=== PATIENT | male | born 1930 | race Caucasian/White ===

== ENCOUNTER 2017-10-02 00:31 | Observation (INO) ==
[2017-10-02] MEDS ORDERED: Naloxone 0.4 MG/ML INJ IVP PRN (04:15)
[2017-10-02] MEDS ORDERED: Ondansetron 4 MG/2 ML VIAL IVP PRN (04:15)
[2017-10-02] MEDS ORDERED: Acetaminophen 325 MG TABLET PO PRN (04:15)
[2017-10-02] MEDS ORDERED: *HR* Dextrose 50 % in Water (Syg) 50 ML SYRINGE IVP PRN (04:18)
[2017-10-02] MEDS ORDERED: Dextrose Gel 15 GM/37.5 ML TUBE PO PRN ×2 (04:18)
[2017-10-02] MEDS ORDERED: D5% in Water 1,000 ML IVC PRN (04:18)
--- NOTE | 2017-10-02 04:53 | Internal Med History&Physical ---
Date of Encounter: 10/02/17 Time of Encounter: 04:00 Assessment and Plan (1) TIA (transient ischemic attack) Current visit: Yes Status: Acute Acute onset, brief episode of confusion. Now resolved. CT head in the emergency room showed no evidence of acute infarct or bleed. Complete stroke workup with bilateral carotid Doppler, MRI brain and transthoracic echocardiogram. Continue telemetry monitoring. continue ASA and statin; check HbA1C and lipid profile. Qualifiers: Transient cerebral ischemia type: unspecified Qualified Code(s): G45.9 - Transient cerebral ischemic attack, unspecified (2) Essential hypertension Current visit: Yes Status: Chronic BP well-controlled; resume home meds; (3) Diabetes mellitus Current visit: Yes Status: Chronic reports blood sugars are well-controlled usually; check HbA1C, start Accucheck blood glucose monitoring with sliding scale insulin as needed; diabetic diet; Qualifiers: Diabetes mellitus type: type 2 Diabetes mellitus complication status: with kidney complications Diabetes mellitus complication detail: with chronic kidney disease Diabetes mellitus halfway insulin use: without halfway use Chronic kidney disease stage: stage 3 (moderate) Qualified Code(s): E11.22 - Type 2 diabetes mellitus with diabetic chronic kidney disease; N18.3 - Chronic kidney disease, stage 3 (moderate); N18.3 - Chronic kidney disease, stage 3 (moderate) (4) CKD (chronic kidney disease) Current visit: Yes Status: Chronic serum creatinine at baseline; Qualifiers: Chronic kidney disease stage: stage 3 (moderate) Qualified Code(s): N18.3 - Chronic kidney disease, stage 3 (moderate) (5) CAD (coronary artery disease) Current visit: Yes Status: Chronic Qualifiers: Coronary Disease-Associated Artery/Lesion type: [place] artery [place] vs. transplanted heart: [place] heart Associated angina: without angina Qualified Code(s): I25.10 - Atherosclerotic heart disease of [place] coronary artery without angina pectoris Internal Medicine - H&P: HPI Chief complaint: Confusion Admitted From: Emergency Dept Plans for Post Hospital Care: Home History of present illness: Mr. Neville is a 87 year old male with history of hypertension, chronic kidney disease, coronary artery disease, presented to [place] emergency room with complaints of acute onset of confusion. Patient was in his usual state of health until this evening at around 6:30 PM, when he was last seen by his significant other. At around 10 PM, patient was watching television when he could not operate the remote control due to confusion. His symptoms resolved in the emergency room. He denied headache, blurred vision, focal weakness/ paresthesias. No slurred speech, facial droop or dysphagia. No previous history of stroke. Past Med Surg Social Fam HX - Past Medical History Medical history: cancer (History of prostate cancer), coronary artery disease, diabetes, hyperlipidemia, hypertension, renal disease Psychiatric history: no psych history - Past Surgical History Surgical History: angioplasty/stent, orthopedic, other (Right wrist fracture repairs), vascular surgery (Abdominal aortic aneurysm repair) - Social History Smoking Status: Former smoker Smokeless Tobacco Status: No Alcohol use: none Drug use: none Occupational status: retired Current living situation: Home, With Family Activity Level: Independent ambulation Recent Out of Country Travel Within the Last 8 Weeks: No Exposure or Possible Exposure to Illness During Travel: No - Family History Father Living Status: Cause of : Triple A rupture Hx Family Cardiac Disorders: Yes Internal Medicine - H&P: Meds Aspirin [Lo-Dose Aspirin EC] 81 mg PO DAILY 04/07/16 [History] Atorvastatin [Lipitor] 40 mg PO HS 04/07/16 [History] Finasteride [Proscar] 5 mg PO DAILY 04/07/16 [History] GlipiZIDE XL (24 HR) [Glucotrol XL] 5 mg PO 0800 04/07/16 [History] Metoprolol [Lopressor] 50 mg PO DAILY 04/07/16 [History] hydroCHLOROthiazide [Hydrochlorothiazide] 25 mg PO DAILY 04/07/16 [History] 3 Allergy/AdvReac Type Severity Reaction Status Date / Time Diclofenac AdvReac See Verified 10/01/17 22:36 Comments All Systems PM: A 10-system review of systems was performed and is negative for pertinent findings except as documented above in the HPI. - Constitutional Constitutional: no chills, no fever(s), no night sweats - EENT Eyes: no change in vision, no discharge, no pain, no photophobia Ears: no ear discharge, no ear pain, no tinnitus Nose, mouth and throat: no dysphagia, no nasal discharge, no neck pain, no sore throat - Cardiovascular Cardiovascular ROS IM: no chest pain, no diaphoresis, no dyspnea, no lightheadedness, no palpitations, no syncope - Respiratory Respiratory: no cough, no dyspnea, no wheezing, no excessive phlegm production - Gastrointestinal Gastrointestinal: no abdominal pain, no diarrhea, no hematemesis, no hematochezia, no melena, no nausea, no vomiting - Musculoskeletal Musculoskeletal ROS IM: no numbness, no tingling - Integumentary Integumentary IM: no rash, no unusual bruising - Neurological Neurological ROS: confusion - Hematologic/Lymphatic Hematologic/Lymphatic: no easy bruising - Constitutional Vitals: Temp Pulse Resp BP Pulse Ox 97.6 F 59 16 156/85 94 10/02/17 03:45 10/02/17 03:45 10/02/17 03:45 10/02/17 03:45 10/02/17 03:45 General appearance: Present: A&O X 3 (hearing loss), answers questions appropriately - Respiratory Respiratory exam: Present: CTAB. Absent: accessory muscle use, rales, rhonchi, wheezes - Cardiovascular Cardiovascular exam: Present: RRR, +S1, +S2. Absent: diastolic murmur, gallop, rubs, systolic murmur - GI/Abdominal GI/Abdominal exam: Present: normal bowel sounds, soft (obese), no peritoneal signs. Absent: distended, tenderness - Extremities Exam Extremities exam: Present: full ROM, warm, radial pulses palpable and symmetrical. Absent: calf tenderness, cyanotic, pedal edema - Neurological Exam Neurological exam: Present: CN II-XII intact, oriented X3, no focal deficits. Absent: pronater drift, facial droop, speech deficit - Skin Skin exam: Present: dry, intact Internal Med - H&P Results - EKG Data -: EKG Interpreted by Myself (first degree AV block) EKG shows normal: sinus rhythm Rate: normal
[2017-10-02 05:48] LABS: Chol/HDL Ratio 4.5 (0-4.9)
[2017-10-02 06:23] LABS: Hemoglobin A1C 5.6 %
[2017-10-02] MEDS: Insulin LISPRO 300 UNITS/3 ML VIAL SQ SCH ×2 (07:44→11:21)
[2017-10-02] MEDS ORDERED: Finasteride 5 MG TABLET PO SCH (09:00)
[2017-10-02] MEDS ORDERED: hydroCHLOROthiazide 25 MG TABLET PO SCH (09:00)
[2017-10-02] MEDS ORDERED: Aspirin Enteric Coated 81 MG Tablet PO SCH (09:00)
[2017-10-02] MEDS ORDERED: Perflutren Lipid Microsphere 1.3 ML in 0.9 % Sodium Chloride 8.7 ML IVP ONE (10:38)
[2017-10-02 15:22] VITALS: BP 135/68
--- NOTE | 2017-10-02 15:38 | Discharge Summary ---
Date of Encounter: 10/02/17 Time of Encounter: 15:34 - Discharge Diagnosis (1) TIA (transient ischemic attack) Priority: Primary Status: Acute Comments: possible. Presented with an episode of confusion; patient states he was unable to find the channel on his remote control for TV and did not feel herself for several hours. Head CT nonacute, brain MRI without acute infarct. Bilateral carotids with nonstenotic plaque bilaterally. TTE with EF 45%, dilated left atrium and aortic stenosis. Etiology unknown, possible TIA. No previous history of CVA. Patient returned to baseline without intervention. Declined inpatient neurology consult. Recommend follow-up with PCP within one week Qualifiers: Transient cerebral ischemia type: unspecified Qualified Code(s): G45.9 - Transient cerebral ischemic attack, unspecified (2) Essential hypertension Priority: Primary Status: Chronic Comments: per hx. BP mildly elevated on arrival otherwise well controlled. Continue home BP medications. (3) Diabetes mellitus Priority: Secondary Status: Chronic Comments: per hx. blood sugars controlled. Continue home diabetes medication regimen. Qualifiers: Diabetes mellitus type: type 2 Diabetes mellitus complication status: with kidney complications Diabetes mellitus complication detail: with chronic kidney disease Diabetes mellitus fdc insulin use: without fdc use Chronic kidney disease stage: stage 3 (moderate) Qualified Code(s): E11.22 - Type 2 diabetes mellitus with diabetic chronic kidney disease; N18.3 - Chronic kidney disease, stage 3 (moderate); N18.3 - Chronic kidney disease, stage 3 (moderate) (4) CKD (chronic kidney disease) Priority: Secondary Status: Chronic Comments: per hx. renal function at baseline. Can follow up with nephrology outpatient. Qualifiers: Chronic kidney disease stage: stage 3 (moderate) Qualified Code(s): N18.3 - Chronic kidney disease, stage 3 (moderate) (5) Aortic stenosis Priority: Primary Status: Acute Comments: 10/02/2017 TTE with evidence of moderate to severe aortic stenosis. Discussed with Dr. Alvarez and this can be worked-up/evaluated further outpatient. Qualifiers: Cardiac valve disease etiology: etiology unspecified Qualified Code(s): I35.0 - Nonrheumatic aortic (valve) stenosis - Discharge Medications Home Medications: Aspirin [Lo-Dose Aspirin EC] 81 mg PO DAILY 04/07/16 [History] Atorvastatin [Lipitor] 40 mg PO HS 04/07/16 [History] Finasteride [Proscar] 5 mg PO DAILY 04/07/16 [History] GlipiZIDE XL (24 HR) [Glucotrol XL] 5 mg PO DAILY 04/07/16 [History] hydroCHLOROthiazide [Hydrochlorothiazide] 25 mg PO DAILY 04/07/16 [History] FLUoxetine HCl [Fluoxetine HCl] 10 mg PO DAILY 10/02/17 [History] Fluticasone Propionate [Flovent Diskus] 250 mcg IH DAILY 10/02/17 [History] Losartan Potassium [Cozaar] 100 mg PO DAILY 10/02/17 [History] Metoprolol XL (24 HR) Succ [Toprol Xl] 50 mg PO DAILY 10/02/17 [History] Metoprolol [Lopressor] 50 mg PO DAILY tablet 10/02/17 [Rx] Allergies/Adverse Reactions: 3 Allergy/AdvReac Type Severity Reaction Status Date / Time Diclofenac AdvReac See Verified 10/01/17 22:36 Comments Procedures/tests Complete & Pending: Procedures Performed prior 72 hours Category Date Time Status MR head/brain wo con [MR] Routine MRI 10/02/17 04:16 Completed EV carotid duplex imaging BI Routine Y 10/02/17 04:16 Completed EV echocardiogram w enhance Routine Y 10/02/17 04:16 Completed Date of admission: 10/02/17 03:19 Primary care physician: Jesus Manuel Cristobal MD Discharging clinician: Svetlana Sherwood Anticipated date of discharge: 10/02/17 - Patient Status Disposition: Home, Self-Care Condition: Good Functional capacity at discharge: independent ambulation Overall status at discharge: patient is back to baseline - Discharge Instructions Instructions: Transient Ischemic Attack (DC), Aortic Stenosis (DC) Follow Up With: Jesus Manuel Cristobal MD [Primary Care Provider] - (Follow up appointment web requested. Office will contact you with appointment time.) Uriel Alvarez DO [Partnered Physician] - (Please establish care with cardiology for further workup and treatment of aortic stenosis. You can call Dr. Alvarez ([facility]) at number listed above or you may need to obtain referral from PCP) Aric Mendoza DO [Partnered Physician] - (Please establish care with Neurology if confusion or other symptoms of TIA reoccur.) - Diet and Activity Activity: increase activity as tolerated Diet: advance to your usual diet Hospital course: Mr. Neville is a 87 year old male - Time Spent with Patient Total time spent providing and/or coordinating discharge services: - Constitutional Vitals: Temp Pulse Resp BP Pulse Ox 97.7 F 61 17 135/68 92 10/02/17 15:21 10/02/17 15:21 10/02/17 15:21 10/02/17 15:21 10/02/17 15:21 General appearance: Present: A&O X 3 (hearing loss), answers questions appropriately
[2017-10-02] MEDS ORDERED: Insulin LISPRO 300 UNITS/3 ML VIAL SQ SCH (21:00)
== END 2017-10-02 17:45 | disposition home or self-care (01) ==
LOC: 3BNU
PROVIDERS: ADMIT Internal Medicine; ATTEND Internal Medicine

== ENCOUNTER 2018-03-15 02:13 | Inpatient (IN) ==
[2018-03-15] MEDS ORDERED: cefTRIAXone 1,000 MG in Water for inj. (sterile) 20 ML 10 ML IVP ONE (02:48)
[2018-03-15] MEDS ORDERED: Azithromycin 500 MG in D5% in Water 250 ML IVPB ONE (02:48)
[2018-03-15 04:31] LABS: Basophils % 0.3 %; Eosinophils # 0.2 K/mcL (0.0-0.6); Eosinophils % 2.5 %; Hematocrit 38.5 % (37.5-50.1); Hemoglobin 12.7 g/dL (12.9-16.9); Immature Granulocytes % 0.3 % (0-4); Lymphocytes # 1.4 K/mcL (0.6-4.6); Lymphocytes % 15.6 %; Mean Corpuscular Volume 87.9 fL (83.0-100.0); Mean Platelet Volume 11.4 fL (9.4-12.4); Monocytes # 0.7 K/mcL (0.0-1.3); Monocytes % 8.3 %; Neutrophils # 6.4 K/mcL (1.6-8.9); Platelet Count 133 K/mcL (140-400); Red Blood Count 4.38 M/mcL (4.19-5.50); Red Cell Distribution Width 14.8 % (11.5-14.5)
[2018-03-15 04:53] LABS: Alanine Aminotransferase 15 Units/L (7-52); Albumin 4.1 g/dL (3.5-5.7); Albumin/Globulin Ratio 1.5 (1.1-2.2); Alkaline Phosphatase 53 Units/L (34-104); Aspartate Amino Transferase 17 Units/L (13-39); BUN/Creatinine Ratio 18 (6-26); Bilirubin,Total 1.1 mg/dL (0.3-1.0); Blood Urea Nitrogen 22 mg/dL (8-23); Calcium 9.4 mg/dL (8.6-10.3); Carbon Dioxide 22 mEq/L (23-29); Chloride 111 mEq/L (98-107); Globulin 2.8 g/dL (2.4-3.5); Glucose 128 mg/dL (70-105); Osmolality,Calculated 295 (280-300); Potassium 3.9 mEq/L (3.5-5.1); Sodium 140 mEq/L (136-145); Total Protein 6.9 g/dL (6.4-8.9); eGFR For African Americans > 60 (> 60); eGFR For Non-African Americans 56 (> 60)
--- NOTE | 2018-03-15 04:58 | Emergency Department Note ---
Disposition Clinical Impression: Pneumonia Qualifiers: Pneumonia type: due to unspecified organism Laterality: unspecified laterality Lung location: unspecified part of lung Qualified Code(s): J18.9 - Pneumonia, unspecified organism Disposition: Admitted As Inpatient Condition: Undetermined General Adult HPI - General Chief complaint: ED Shortness of Breath/Dyspnea Stated complaint: sent from [facility] for PN Source: patient, family Nursing Notes Reviewed: Yes Vital Signs Reviewed: Yes - History of Present Illness HPI Narrative: This is a 87-year-old male who presents with concern for pneumonia. He was actually diagnosed yesterday with pneumonia and started on Levaquin as an outpatient. He ultimately went back to [facility] emergency department today with concerns for ongoing cough and congestion. He was subsequent found to have ongoing pneumonia and was recommended to be admitted to the hospital. He declined transfer here for admission but was willing to come in a private vehicle. He was not accepted as a direct admit as he was coming from a health care facility. General: No acute distress HEENT: Pupils equal and reactive to light, extraoccular muscle movement is normal, TMS are clear bilaterally. Heart: RRR, No murmor rub or gallop Lungs: lungs clear, no wheezing, rales or ronchi. ABD: SNT, no focal areas or tenderness, no guarding or rebound tenderness. Extremities: No cyanosis, clubbing or edema Neuro: CN 2-12 in tact, no focal deficit. strength 5/5. Medical decision making Findings consistent with pneumonia. We will start ceftriaxone and azithromycin , blood cultures will be sent. A CT scan of the chest will be obtained to evaluate the degree and extent of pneumonia. The patient is not having hypoxia or respiratory distress at this time. We will proceed with admission. Discussed case with hospitalist team. Pain Scale: 0 - Related Data Home Medications Medication Instructions Recorded Confirmed Aspirin [Lo-Dose Aspirin EC] 81 mg PO DAILY 04/07/16 03/15/18 Atorvastatin [Lipitor] 40 mg PO HS 04/07/16 03/15/18 Finasteride [Proscar] 5 mg PO DAILY 04/07/16 03/15/18 GlipiZIDE XL (24 HR) [Glucotrol XL] 5 mg PO DAILY 04/07/16 03/15/18 FLUoxetine HCl [Fluoxetine HCl] 10 mg PO DAILY 10/02/17 03/15/18 Fluticasone Propionate [Flovent 250 mcg IH DAILY 10/02/17 03/15/18 Diskus] Losartan Potassium [Cozaar] 100 mg PO DAILY 10/02/17 03/15/18 Previous Rx's Medication Instructions Recorded Metoprolol [Lopressor] 50 mg PO DAILY tablet 10/02/17 levoFLOXacin [Levaquin] 750 mg PO DAILY #9 tablet 03/14/18 Allergies Allergy/AdvReac Type Severity Reaction Status Date / Time Diclofenac AdvReac See Verified 03/14/18 06:44 Comments All systems ED: reviewed and negative except as stated. Review of Systems: As Per HPI Past Medical History - Past Medical History Medical history: Reports: cancer, COPD, coronary artery disease, diabetes, hyperlipidemia, hypertension, renal disease Surgical history: Reports: angioplasty/stent, orthopedic, other (Right wrist fracture repairs), vascular surgery (Abdominal aortic aneurysm repair) Psychiatric history: Reports: anxiety - Social History Smoking Status: Former smoker Smokeless Tobacco Status: No Alcohol use: Reports: none Drug use: Reports: none Physical Exam - General General appearance: alert, in no apparent distress Course Vital Signs Temperature 97.8 F 03/15/18 02:19 Pulse Rate 75 03/15/18 02:19 Respiratory Rate 28 03/15/18 02:19 Blood Pressure 150/88 03/15/18 02:19 O2 Sat by Pulse Oximetry 93 03/15/18 02:19 Temperature 97.8 F 03/15/18 02:31 Pulse Rate 75 03/15/18 02:31 Respiratory Rate 28 03/15/18 02:31 Blood Pressure 150/88 03/15/18 02:31 O2 Sat by Pulse Oximetry 93 03/15/18 02:31 Oxygen Delivery Oxygen Delivery Room Air Medical Decision Making - Lab Data Result diagrams: 03/15/18 04:16
[2018-03-15] MEDS ORDERED: Naloxone 0.4 MG/ML INJ IVP PRN (06:34)
[2018-03-15] MEDS ORDERED: Acetaminophen 325 MG TABLET PO PRN (06:34)
--- NOTE | 2018-03-15 06:43 | Internal Med History&Physical ---
Date of Encounter: 03/15/18 Time of Encounter: 05:00 Internal Medicine - H&P: HPI Chief complaint: Shortness of breath Admitted From: Home Plans for Post Hospital Care: Home History of present illness: Mr. Neville is a 87 year old male presented to ER for shortness of breath for 3-4 days. Past medical history is significant for COPD, diabetes, hypertension Patient said he starts shortness of breath since 3-4 days ago. With productive cough. Sputum is clear. Patient also has a low fever with temperature 99.7. Patient denies chest pain, nausea, vomiting. In the emergency room, chest x- ray shows possible pneumonia, patient was advised to be admitted but patient refused. He was prescribed by mouth Levaquin and discharged to home. Patient still have difficulty breathing at home and come back to hospital again. Patient was admitted for further management. Past Med Surg Social Fam HX - Past Medical History Medical history: cancer, COPD, coronary artery disease, diabetes, hyperlipidemia , hypertension, renal disease Additional medical history: prostate cancer (radiation seeds about 10 years ago) Psychiatric history: anxiety - Past Surgical History Surgical History: angioplasty/stent, orthopedic, other (Right wrist fracture repairs), vascular surgery (Abdominal aortic aneurysm repair) Additional surgical history: angioplasty, triple A - Social History Smoking Status: Former smoker Smokeless Tobacco Status: No Alcohol use: none Drug use: none - Family History Father Living Status: Hx Family Cardiac Disorders: Yes Internal Medicine - H&P: Meds Aspirin [Lo-Dose Aspirin EC] 81 mg PO DAILY 04/07/16 [History] Atorvastatin [Lipitor] 40 mg PO HS 04/07/16 [History] Finasteride [Proscar] 5 mg PO DAILY 04/07/16 [History] GlipiZIDE XL (24 HR) [Glucotrol XL] 5 mg PO DAILY 04/07/16 [History] FLUoxetine HCl [Fluoxetine HCl] 10 mg PO DAILY 10/02/17 [History] Fluticasone Propionate [Flovent Diskus] 250 mcg IH DAILY 10/02/17 [History] Losartan Potassium [Cozaar] 100 mg PO DAILY 10/02/17 [History] Metoprolol [Lopressor] 50 mg PO DAILY tablet 10/02/17 [Rx] levoFLOXacin [Levaquin] 750 mg PO DAILY #9 tablet 03/14/18 [Rx] 3 Allergy/AdvReac Type Severity Reaction Status Date / Time Diclofenac AdvReac See Verified 03/14/18 06:44 Comments All Systems PM: A 10-system review of systems was performed and is negative for pertinent findings except as documented above in the HPI. - Constitutional Vitals: Temp Pulse Resp BP Pulse Ox 97.9 F 69 17 138/68 97 03/15/18 05:08 03/15/18 05:08 03/15/18 05:08 03/15/18 05:08 03/15/18 05:08 General appearance: Present: A&O X 3, no acute distress, answers questions appropriately - Head Head exam: Present: atraumatic, normocephalic - Eye Eye exam: Present: PERRL, conjuntiva pink, sclera anicteric Pupils: Present: PERRL - Neck Neck exam general surgery: Present: supple, trachea midline. Absent: lymphadenopathy - Respiratory Respiratory exam: Present: CTAB. Absent: accessory muscle use, rales, rhonchi, wheezes - Cardiovascular Cardiovascular exam: Present: RRR, +S1, +S2. Absent: diastolic murmur, gallop, rubs, systolic murmur - GI/Abdominal GI/Abdominal exam: Present: normal bowel sounds, soft, no peritoneal signs. Absent: distended, tenderness - Extremities Exam Extremities exam: Present: pedal edema (Mild pedal edema bilaterally), warm, radial pulses palpable and symmetrical. Absent: calf tenderness, cyanotic - Neurological Exam Neurological exam: Present: CN II-XII intact, oriented X3, no focal deficits. Absent: pronater drift, facial droop, speech deficit - Skin Skin exam: Present: dry, intact Internal Med - H&P Results - Labs CBC & Chem 7: 03/15/18 04:16 03/15/18 04:16 - Assessment and plan (1) COPD (chronic obstructive pulmonary disease) Current Visit: Yes Status: Acute Assessment and plan: Patient has no wheezing. Continue home medications. DuoNeb when necessary. Qualifiers: COPD type: emphysema Emphysema type: unspecified Qualified Code(s): J43.9 - Emphysema, unspecified (2) DVT prophylaxis Current Visit: Yes Status: Acute Assessment and plan: Heparin subcutaneously (3) Community acquired pneumonia Current Visit: No Status: Acute Assessment and plan: Continue antibiotic azithromycin and Rocephin IV. Continue symptomatic treatment. Qualifiers: Laterality: left Lung location: lower lobe of lung Qualified Code(s): J18.1 - Lobar pneumonia, unspecified organism (4) CAD (coronary artery disease) Current Visit: No Status: Chronic Assessment and plan: Continue home medications. Qualifiers: Coronary Disease-Associated Artery/Lesion type: [place] artery [place] vs. transplanted heart: [place] heart Associated angina: without angina Qualified Code(s): I25.10 - Atherosclerotic heart disease of [place] coronary artery without angina pectoris (5) Diabetes mellitus Current Visit: No Status: Chronic Assessment and plan: [place] Patient with sliding scale insulin Qualifiers: Diabetes mellitus type: type 2 Diabetes mellitus long-term insulin use: without long term care phlebotomist use Diabetes mellitus complication status: with kidney complications Diabetes mellitus complication detail: with chronic kidney disease Chronic kidney disease stage: stage 3 (moderate) Qualified Code(s): E11.22 - Type 2 diabetes mellitus with diabetic chronic kidney disease; N18.3 - Chronic kidney disease, stage 3 (moderate); N18.3 - Chronic kidney disease, stage 3 (moderate) (6) CHF (congestive heart failure) Current Visit: Yes Status: Acute Assessment and plan: Patient presented with shortness of breath. He has elevated BNP. He has mild bilateral pedal edema. Need to rule out CHF. Will order echocardiogram. Start low-dose Lasix. Qualifiers: Heart failure type: unspecified Heart failure chronicity: acute Qualified Code(s): I50.9 - Heart failure, unspecified - Time Spent With Patient Total time spent is greater than 50% in coordination of care (as documented) at patient's floor/unit and/or counseling patient: 40 minutes Greater than 35 minutes
[2018-03-15] MEDS ORDERED: Ipratropium/Albuterol Neb 3 ML IH PRN (06:45)
[2018-03-15] MEDS ORDERED: *HR* Dextrose 50 % in Water (Syg) 50 ML SYRINGE IVP PRN (06:48)
[2018-03-15] MEDS ORDERED: Dextrose Gel 15 GM/37.5 ML TUBE PO PRN ×2 (06:48)
[2018-03-15] MEDS ORDERED: D5% in Water 1,000 ML IVC PRN (06:48)
[2018-03-15] MEDS: *HR* Heparin 5,000 UNIT/ML VIAL SQ SCH ×2 (06:52→16:23)
[2018-03-15] MEDS ORDERED: Furosemide 20 MG TABLET PO SCH (09:00)
[2018-03-15] MEDS: Aspirin Enteric Coated 81 MG Tablet PO SCH (10:38)
[2018-03-15] MEDS: Finasteride 5 MG TABLET PO SCH (10:39)
[2018-03-15] MEDS: Insulin LISPRO 300 UNITS/3 ML VIAL SQ SCH ×4 (10:41→20:25)
--- NOTE | 2018-03-15 12:42 | Event Note ---
Date of Encounter: 03/15/18 Time of Encounter: 08:40 Patient complains of shortness of breath especially while lying down. He does get swelling in his lower extremities occasionally. Shortness of breath worsens with any activity. Denies any wheezing at this time. No significant improvement with in symptoms with bronchodilators. No prior history of cardiac disease. CT of the chest shows emphysema and right apical lung nodule. BNP is elevated. Awaiting 2-D echocardiogram. Will treat empirically with a dose of Lasix and I will assess response.
[2018-03-15] MEDS ORDERED: Furosemide 20 MG/2 ML VIAL IVP SCH (12:45)
[2018-03-16 05:19] LABS: Basophils % 0.5 %; Eosinophils # 0.4 K/mcL (0.0-0.6); Eosinophils % 5.5 %; Hematocrit 38.8 % (37.5-50.1); Hemoglobin 12.8 g/dL (12.9-16.9); Immature Granulocytes % 0.4 % (0-4); Lymphocytes # 1.5 K/mcL (0.6-4.6); Lymphocytes % 20.6 %; Mean Corpuscular Hemoglobin 28.8 pg (28.0-33.3); Mean Corpuscular Volume 87.2 fL (83.0-100.0); Mean Platelet Volume 11.4 fL (9.4-12.4); Monocytes # 0.7 K/mcL (0.0-1.3); Monocytes % 9.9 %; Neutrophils # 4.7 K/mcL (1.6-8.9); Platelet Count 130 K/mcL (140-400); Red Blood Count 4.45 M/mcL (4.19-5.50); Red Cell Distribution Width 14.6 % (11.5-14.5); Segmented Neutrophils % 63.1 %
[2018-03-16 05:33] LABS: BUN/Creatinine Ratio 20 (6-26); Blood Urea Nitrogen 24 mg/dL (8-23); Calcium 9.2 mg/dL (8.6-10.3); Carbon Dioxide 22 mEq/L (23-29); Chloride 109 mEq/L (98-107); Glucose 119 mg/dL (70-105); Magnesium 2.2 mg/dL (1.6-2.6); Osmolality,Calculated 293 (280-300); Potassium 3.7 mEq/L (3.5-5.1); Sodium 139 mEq/L (136-145); eGFR For African Americans > 60 (> 60); eGFR For Non-African Americans 56 (> 60)
[2018-03-16] MEDS: Azithromycin 500 MG in D5% in Water 250 ML IVPB SCH (06:11)
[2018-03-16] MEDS: *HR* Heparin 5,000 UNIT/ML VIAL SQ SCH ×2 (06:13→17:55)
[2018-03-16] MEDS: Insulin LISPRO 300 UNITS/3 ML VIAL SQ SCH ×4 (08:51→21:15)
[2018-03-16] MEDS: Furosemide 20 MG/2 ML VIAL IVP SCH (08:51)
[2018-03-16] MEDS: cefTRIAXone 1,000 MG in Water for inj. (sterile) 20 ML 10 ML IVP SCH (08:51)
[2018-03-16] MEDS: Aspirin Enteric Coated 81 MG Tablet PO SCH (08:52)
[2018-03-16] MEDS: Finasteride 5 MG TABLET PO SCH (08:52)
--- NOTE | 2018-03-16 13:48 | Internal Med Progress Note ---
Date of Encounter: 03/16/18 Time of Encounter: 09:15 - Assessment and plan (1) CHF (congestive heart failure) Current Visit: Yes Status: Acute Assessment and plan: Patient's symptoms of orthopnea and pedal edema along with dyspnea on exertion suggest congestive heart failure. Continue IV Lasix. 2-D echocardiogram shows EF of 30-35% with severe segmental left ventricular systolic dysfunction and mild left ventricular diastolic dysfunction. Patient also has moderate pulmonary hypertension. Patient follows up with cardiology as outpatient. He does not want further cardiac workup at this time as he believes he will see his ejection fraction has remained the same since his last echocardiogram. For now we will continue IV Lasix. Monitor input and output. Qualifiers: Heart failure type: combined systolic and diastolic Heart failure chronicity: acute on chronic Qualified Code(s): I50.43 - Acute on chronic combined systolic (congestive) and diastolic (congestive) heart failure (2) Diabetes mellitus Current Visit: Yes Status: Chronic Assessment and plan: Blood sugars are fairly controlled. Patient does not want to take insulin at this time. We will just monitor sugars for now. Continue diabetic diet Qualifiers: Diabetes mellitus type: type 2 Diabetes mellitus correction insulin use: without correction use Diabetes mellitus complication status: with kidney complications Diabetes mellitus complication detail: with chronic kidney disease Chronic kidney disease stage: stage 3 (moderate) Qualified Code(s): E11.22 - Type 2 diabetes mellitus with diabetic chronic kidney disease; N18.3 - Chronic kidney disease, stage 3 (moderate); N18.3 - Chronic kidney disease, stage 3 (moderate) (3) CAD (coronary artery disease) Current Visit: Yes Status: Chronic Assessment and plan: Continue aspirin, statin, beta wally and losartan Qualifiers: Coronary Disease-Associated Artery/Lesion type: [place] artery [place] vs. transplanted heart: [place] heart Associated angina: without angina Qualified Code(s): I25.10 - Atherosclerotic heart disease of [place] coronary artery without angina pectoris (4) Community acquired pneumonia Current Visit: Yes Status: Suspected Assessment and plan: Patient being treated for possible community-acquired pneumonia. Rocephin and azithromycin. Qualifiers: Laterality: left Lung location: lower lobe of lung Qualified Code(s): J18.1 - Lobar pneumonia, unspecified organism (5) COPD (chronic obstructive pulmonary disease) Current Visit: Yes Status: Chronic Assessment and plan: Not in acute exacerbation. Continue to use bronchodilators as needed Qualifiers: COPD type: emphysema Emphysema type: unspecified Qualified Code(s): J43.9 - Emphysema, unspecified (6) DVT prophylaxis Current Visit: Yes Status: Acute Assessment and plan: On subcutaneous heparin - Time Spent With Patient Total time spent is greater than 50% in coordination of care (as documented) at patient's floor/unit and/or counseling patient: - Subjective Interval history: Patient is feeling better this morning. He reports that he felt short of breath yesterday evening again especially with lying down. The symptoms had improved earlier. He continues to have dyspnea on exertion. Mild cough. No wheezing. - Constitutional Vitals: Temp Pulse Resp BP Pulse Ox 98.0 F 75 18 121/73 94 03/16/18 11:14 03/16/18 11:14 03/16/18 11:14 03/16/18 11:14 03/16/18 11:14 General appearance: Present: A&O X 3, no acute distress, answers questions appropriately - Neck Neck exam general surgery: Present: supple, trachea midline. Absent: lymphadenopathy - Respiratory Respiratory exam: Present: CTAB. Absent: accessory muscle use, rales, rhonchi, wheezes - Cardiovascular Cardiovascular exam: Present: RRR, +S1, +S2. Absent: diastolic murmur, gallop, rubs, systolic murmur - GI/Abdominal GI/Abdominal exam: Present: normal bowel sounds, soft, no peritoneal signs. Absent: distended, tenderness - Extremities Exam Extremities exam: Present: warm, radial pulses palpable and symmetrical. Absent : calf tenderness, cyanotic, pedal edema - Neurological Exam Neurological exam: Present: alert, oriented X3, no focal deficits. Absent: facial droop, speech deficit - Skin Skin exam: Present: dry, intact Internal Medicine: Result - Labs CBC & Chem 7: 03/16/18 04:43 03/16/18 04:43 Labs: Short CBC 03/16/18 Range/Units 04:43 WBC 7.4 (4.3-11.1) K/mcL Hgb 12.8 L (12.9-16.9) g/dL Hct 38.8 (37.5-50.1) % Plt Count 130 L (140-400) K/mcL Neutrophils # 4.7 (1.6-8.9) K/mcL BMP 03/16/18 04:43 Sodium 139 Potassium 3.7 Chloride 109 H Carbon Dioxide 22 L BUN 24 H Creatinine 1.22 Glucose 119 H Calcium 9.2 - Impressions Impressions Echocardiogram 03/15/18 06:53 Impressions: LVEF 30-35%. Mildly dilated left ventricle. Severe segmental left ventricular systolic dysfunction. Mild left ventricular diastolic dysfunction. Normal right ventricular structure and function. Mild aortic regurgitation. Mild mitral regurgitation. Moderate pulmonary hypertension. Left Ventricular Wall Motion: Rest Echo Findings The apex, apical anterior, mid anterior and apical lateral sullivan were hypokinetic. The apical inferior, apical septal, mid inferior septal and mid anterior septal sullivan were akinetic. All other wall segments showed normal motion. Findings: Study Quality * Technically adequate exam. ECG Findings * Sinus rhythm with BBB. Left Ventricle * LVEF 30-35%. * Mildly dilated left ventricle. * Severe segmental left ventricular systolic dysfunction. * Mild left ventricular diastolic dysfunction. Right Ventricle * Normal right ventricular structure and function. Left Atrium * Moderately dilated left atrium. Right Atrium * Normal right atrial size. Aortic Valve * Aortic valve not well visualized. * Grossly, mildly calcified aortic valve leaflets. * Mild aortic regurgitation. * No aortic stenosis by Doppler. Mitral Valve * Mildly thickened mitral valve leaflets. * Mild mitral regurgitation. * No mitral stenosis. Tricuspid Valve * Normal tricuspid valve structure and function. * Trace tricuspid regurgitation. * Moderate pulmonary hypertension. Pulmonic Valve * Pulmonic valve is not well visualized. Pericardium * The pericardium appears normal. IVC * Normal IVC dimensions and inspiratory collapse. Aorta * The aortic root is mildly dilated, measures 4.0 cm. Pulmonary Artery * Normal visualized portions of the main pulmonary artery. Consult Discharge Plan - Plan Referrals: Jesus Manuel Cristobal MD [Primary Care Provider] - 03/25/18 10:30 am
[2018-03-16] MEDS: Beclomethasone 80mcg MDI IH SCH ×2 (16:10→19:56)
[2018-03-17] MEDS: *HR* Heparin 5,000 UNIT/ML VIAL SQ SCH (06:23)
[2018-03-17] MEDS: Azithromycin 500 MG in D5% in Water 250 ML IVPB SCH (06:23)
[2018-03-17 06:43] LABS: BUN/Creatinine Ratio 23 (6-26); Blood Urea Nitrogen 28 mg/dL (8-23); Calcium 9.1 mg/dL (8.6-10.3); Carbon Dioxide 25 mEq/L (23-29); Chloride 109 mEq/L (98-107); Glucose 125 mg/dL (70-105); Osmolality,Calculated 299 (280-300); Potassium 3.8 mEq/L (3.5-5.1); Sodium 141 mEq/L (136-145); eGFR For African Americans > 60 (> 60); eGFR For Non-African Americans 56 (> 60)
[2018-03-17 06:45] VITALS: BP 104/65
[2018-03-17] MEDS: Beclomethasone 80mcg MDI IH SCH (07:27)
[2018-03-17] MEDS: Insulin LISPRO 300 UNITS/3 ML VIAL SQ SCH (08:24)
--- NOTE | 2018-03-17 08:52 | Discharge Summary ---
- NOTES TO OUTPATIENT PROVIDER Notes to Outpatient Provider: Patient hospitalized with dyspnea on exertion and orthopnea. Diagnosed with pneumonia and acute CHF. Treated with antibiotics and Lasix with improvement in his symptoms. He will need follow-up with cardiology. EF of 30-35% with left ventricle diastolic dysfunction and moderate pulmonary hypertension. Started lasix 40 mg daily. Date of Encounter: 03/17/18 Time of Encounter: 08:15 - Discharge Diagnosis (1) CHF (congestive heart failure) Priority: Primary Status: Acute Qualifiers: Heart failure type: combined systolic and diastolic Heart failure chronicity: acute on chronic Qualified Code(s): I50.43 - Acute on chronic combined systolic (congestive) and diastolic (congestive) heart failure (2) Diabetes mellitus Priority: Secondary Status: Chronic Qualifiers: Diabetes mellitus type: type 2 Diabetes mellitus supervisor intermediates insulin use: without supervisor intermediates use Diabetes mellitus complication status: with kidney complications Diabetes mellitus complication detail: with chronic kidney disease Chronic kidney disease stage: stage 3 (moderate) Qualified Code(s): E11.22 - Type 2 diabetes mellitus with diabetic chronic kidney disease; N18.3 - Chronic kidney disease, stage 3 (moderate) (3) CAD (coronary artery disease) Priority: Secondary Status: Chronic Qualifiers: Coronary Disease-Associated Artery/Lesion type: [place] artery [place] vs. transplanted heart: [place] heart Associated angina: without angina Qualified Code(s): I25.10 - Atherosclerotic heart disease of [place] coronary artery without angina pectoris (4) Community acquired pneumonia Priority: Secondary Status: Acute Qualifiers: Laterality: left Lung location: lower lobe of lung Qualified Code(s): J18.1 - Lobar pneumonia, unspecified organism (5) COPD (chronic obstructive pulmonary disease) Priority: Secondary Status: Chronic Qualifiers: COPD type: emphysema Emphysema type: unspecified Qualified Code(s): J43.9 - Emphysema, unspecified (6) DVT prophylaxis Priority: Secondary Status: Acute Hospital course: Mr. Neville is a 87 year old male Patient with history of COPD, emphysema was hospitalized with dyspnea on exertion and orthopnea. He had previously been diagnosed with pneumonia and was treated with Levaquin as outpatient. His symptoms continued and so he came to the ER 2 days later. Given his orthopnea, he was suspected of having acute CHF and was treated with Lasix. Echo showed EF of 30-35% with left ventricle diastolic dysfunction and moderate pulmonary hypertension. Patient did not want any further workup done at this time as he follows up with his gasoline tester regularly. His symptoms have now improved and he is is clinically stable to be discharged home on Lasix 40 mg by mouth daily. Patient also has diabetes but refused insulin use here. Discharge discussed with: patient, nurse - Time Spent with Patient Total time spent providing and/or coordinating discharge services: Greater than 30 minutes (32 min) - Discharge Medications Prescriptions: Furosemide [Lasix] 40 mg PO DAILY #30 tablet Home Medications: Aspirin [Lo-Dose Aspirin EC] 81 mg PO DAILY 04/07/16 [History] Atorvastatin [Lipitor] 40 mg PO HS 04/07/16 [History] Finasteride [Proscar] 5 mg PO DAILY 04/07/16 [History] GlipiZIDE XL (24 HR) [Glucotrol XL] 5 mg PO DAILY 04/07/16 [History] Fluticasone Propionate [Flovent Diskus] 250 mcg IH DAILY 10/02/17 [History] Losartan Potassium [Cozaar] 100 mg PO DAILY 10/02/17 [History] levoFLOXacin [Levaquin] 750 mg PO DAILY #9 tablet 03/14/18 [Rx] Ipratropium/Albuterol Neb [Duoneb] 3 ml IH Q4HR 03/15/18 [History] Metoprolol Succinate [Toprol Xl] 50 mg PO DAILY 03/15/18 [History] Furosemide [Lasix] 40 mg PO DAILY #30 tablet 03/17/18 [Rx] Allergies/Adverse Reactions: 3 Allergy/AdvReac Type Severity Reaction Status Date / Time Diclofenac AdvReac See Verified 03/14/18 06:44 Comments Date of admission: 03/15/18 06:10 Primary care physician: Jesus Manuel Cristobal MD Discharging clinician: Estevan Reilly Anticipated date of discharge: 03/17/18 - Constitutional Vitals: Temp Pulse Resp BP Pulse Ox 97.9 F 73 16 104/65 92 03/17/18 06:39 03/17/18 06:39 03/17/18 07:27 03/17/18 06:39 03/17/18 07:27 General appearance: Present: A&O X 3, no acute distress, answers questions appropriately - Respiratory Respiratory exam: Present: CTAB. Absent: accessory muscle use, rales, rhonchi, wheezes - Cardiovascular Cardiovascular exam: Present: RRR, +S1, +S2. Absent: diastolic murmur, gallop, rubs, systolic murmur - GI/Abdominal GI/Abdominal exam: Present: normal bowel sounds, soft, no peritoneal signs. Absent: distended, tenderness - Extremities Exam Extremities exam: Present: warm, radial pulses palpable and symmetrical. Absent : calf tenderness, cyanotic, pedal edema - Patient Status Disposition: Home, Self-Care Condition: Good Functional capacity at discharge: independent ambulation Overall status at discharge: patient is progressing back to baseline - Discharge Instructions Instructions: Heart Failure (DC), Pneumonia (DC) Follow Up With: Jerald Proctor MD [Non-Partnered Physician] - 03/29/18 8:00 am ([place] office. Thank you) Jesus Manuel Cristobal MD [Primary Care Provider] - 03/25/18 10:30 am Forms: ED Satisfaction Letter Additional Instructions: Follow-up with your gasoline tester in 1 week - Diet and Activity Activity: increase activity as tolerated Diet: diabetic diet, low fat, low cholesterol, low salt diet, other (Fluid restriction to 2 L per day)
[2018-03-17] MEDS ORDERED: Metoprolol XL (24 HR) Succ 50 MG TAB.ER.24H PO SCH (09:00)
[2018-03-17] MEDS: Aspirin Enteric Coated 81 MG Tablet PO SCH (09:43)
[2018-03-17] MEDS: Finasteride 5 MG TABLET PO SCH (09:43)
[2018-03-17] MEDS: Furosemide 20 MG/2 ML VIAL IVP SCH (09:49)
[2018-03-17] MEDS: cefTRIAXone 1,000 MG in Water for inj. (sterile) 20 ML 10 ML IVP SCH (09:50)
== END 2018-03-17 12:30 | disposition home or self-care (01) | DRG 291 ==
LOC: 3ANU 02:13 → EMEROO 02:13 → 3ANU 04:06 → SUATTDRO 06:10
PROVIDERS: ADMIT Internal Medicine; ATTEND Internal Medicine